=== PATIENT | male | born 1960 | race Caucasian/White ===

== ENCOUNTER 2018-04-09 13:45 | Emergency (ER) | payer BC ==
[2018-04-09 15:02] LABS: Absolute Lymphocytes (CBC) 1.8 K/uL (0.7-4.9); Absolute Monocytes 1.2 K/uL (0.1-1.3); Absolute Neutrophil 7.5 K/uL (1.8-8.0); Basophils % 0.9 % (0-1.3); Eosinophils % 1.7 % (0-4.4); Hematocrit 40.1 % (39.6-49.0); Lymphocytes % 16.7 % (15.3-44.8); MCH 32.6 pg (27.0-35.0); MPV 8.9 fL (7.6-11.3); Monocytes % 11.4 % (3.3-12.3); RBC Red Blood Cell Count 4.27 M/uL (4.33-5.43)
[2018-04-09 15:12] LABS: Potassium 3.5 mmol/L (3.5-5.1)
--- NOTE | 2018-04-09 15:18 | RAD REPORT ---
EXAM DESCRIPTION: USExtremity Venous Uni Ltd04/09/2018 3:04 pm CLINICAL HISTORY: Right leg pain and swelling. COMPARISON: None. FINDINGS: Right common femoral, superficial femoral, popliteal and right posterior tibial veins are compressible and demonstrate augmentation. Doppler demonstrates good flow. IMPRESSION: No evidence of deep venous thrombosis involving the right lower extremity.
--- NOTE | 2018-04-09 15:33 | EDPHYS ---
Physician Documentation [facility] Name: Dong rPince Age: 58 yrs Sex: Male : 1960 Arrival Date: 04/09/2018 Time: 13:50 Bed 20 Private MD: None, None ED Physician Yemi Coronado HPI: 04/09 14:57 This 58 yrs old Male presents to ER via Ambulatory with complaints of kb Infected Leg. 14:57 The patient presents with cellulitis of the lateral aspect of right calf, medial aspect kb of right calf and right zhu. Description: erythematous, swollen, warm. Onset: The symptoms/episode began/occurred 3 day(s) ago. Possible cause(s): unknown. Associated signs and symptoms: Pertinent positives: erythema, swelling, Pertinent negatives: discharge, drainage, foreign body sensation, fever, headache, nausea, shortness of breath, vomiting. Modifying factors: the symptoms are alleviated by nothing, the symptoms are aggravated by nothing. Severity of symptoms: At their worst the symptoms were moderate, in the emergency department the symptoms are unchanged. The patient has not experienced similar symptoms in the past. The patient has not recently seen a physician. Pt reports he started having redness and swelling to right lower leg 3 days ago. States the redness has gotten better, but the swelling is the same. Pt had surgery on bottom of right foot in January and has been going to surgeon for regular follow ups. States that had been healing well. Has an appt with surgeon again on Friday. Dime-sized open wound on bottom of right foot with some drainage s/p surgical procedure. No redness, swelling or warmth around wound. Denies fever. . Historical: - Allergies: 13:57 Sulfa (Sulfonamide Antibiotics); aj - Home Meds: 13:57 metformin 500 mg Oral tr24 1 tab once daily [Active]; Hyzaar 100-25 mg Oral tab 1 tab aj once daily [Active]; nifedipine 60 mg Oral tr24 1 tab once daily [Active]; Lipitor 20 mg Oral tab 1 tab once daily [Active]; Zyrtec 10 mg Oral chew 1 tab once daily [Active]; aspirin 81 mg Oral TbEC 1 tab once daily [Active]; diclofenac sodium 75 mg oral TbEC 1 tab 2 times per day [Active]; - PMHx: 13:57 Diabetes - NIDDM; Hypertension; Hyperlipidemia; aj - PSHx: 13:57 Left Hip replacement; aj - Immunization history:: Adult Immunizations up to date. - Social history:: Smoking status: Patient/guardian denies using tobacco. - Ebola Screening: : Patient negative for fever greater than or equal to 101.5 degrees Fahrenheit, and additional compatible Ebola Virus Disease symptoms Patient denies exposure to infectious person Patient denies travel to an Ebola-affected area in the 21 days before illness onset No symptoms or risks identified at this time. ROS: 14:55 Constitutional: Negative for fever, chills, and weight loss, Cardiovascular: Negative kb for chest pain, palpitations, and edema, Respiratory: Negative for shortness of breath, cough, wheezing, and pleuritic chest pain, Abdomen/GI: Negative for abdominal pain, nausea, vomiting, diarrhea, and constipation, Neuro: Negative for headache, weakness, numbness, tingling, and seizure. 14:55 MS/extremity: Positive for erythema, swelling, warmth, of the right zhu. Exam: 14:55 Constitutional: This is a well developed, well nourished patient who is awake, alert, kb and in no acute distress. Head/Face: Normocephalic, atraumatic. Chest/axilla: Normal chest wall appearance and motion. Nontender with no deformity. No lesions are appreciated. Cardiovascular: Regular rate and rhythm with a normal S1 and S2. No gallops, murmurs, or rubs. Normal PMI, no JVD. No pulse deficits. Respiratory: Lungs have equal breath sounds bilaterally, clear to auscultation and percussion. No rales, rhonchi or wheezes noted. No increased work of breathing, no retractions or nasal flaring. Abdomen/GI: Soft, non-tender, with normal bowel sounds. No distension or tympany. No guarding or rebound. No evidence of tenderness throughout. MS/ Extremity: Pulses equal, no cyanosis. Neurovascular intact. Full, normal range of motion. Neuro: Awake and alert, GCS 15, oriented to person, place, time, and situation. Cranial nerves II-XII grossly intact. Motor strength 5/5 in all extremities. Sensory grossly intact. Cerebellar exam normal. Normal gait. 14:55 Skin: cellulitis, that is moderate, on the lateral aspect of right calf, medial aspect of right calf and right zhu. Vital Signs: 13:57 BP 132 / 82; Pulse 87; Resp 18; Temp 97.7; Pulse Ox 96% on R/A; Weight 137.89 kg; aj Height 6 ft. 5 in. (195.58 cm); 16:01 BP 134 / 85; Pulse 88; Resp 18; Pulse Ox 100% on R/A; mg2 13:57 Body Mass Index 36.05 (137.89 kg, 195.58 cm) aj MDM: 13:58 Patient medically screened. kb 14:56 Data reviewed: vital signs, nurses notes. Data interpreted: Pulse oximetry: on room air kb is 96 %. Interpretation: normal. 15:31 Counseling: I had a detailed discussion with the patient and/or guardian regarding: the kb historical points, exam findings, and any diagnostic results supporting the discharge/admit diagnosis, lab results, radiology results, the need for outpatient follow up, a family practitioner, to return to the emergency department if symptoms worsen or persist or if there are any questions or concerns that arise at home. 04/09 14:07 Order name: CBC with Diff; Complete Time: 15:16 kb 04/09 14:07 Order name: Basic Metabolic Panel; Complete Time: 15:13 kb 04/09 14:07 Order name: US Extremity Venous Unilateral Ltd; Complete Time: 15:19 kb 04/09 14:07 Order name: Blood Culture Adult (2) kb 04/09 14:07 Order name: Wound Culture kb 04/09 14:52 Order name: Urine Dipstick--Ancillary (enter results); Complete Time: 15:58 eb 04/09 14:07 Order name: IV Start; Complete Time: 14:19 kb 04/09 14:36 Order name: Labs - recollect needed; Complete Time: 14:53 eb Administered Medications: 15:45 Drug: Clindamycin 600 mg Route: IVPB; Infused Over: 30 mins; Site: right forearm; mg2 16:22 Follow up: Response: No adverse reaction; IV Status: Completed infusion mg2 Disposition: 18:35 Co-signature as Attending Physician, Yemi Coronado MD. rn Disposition: 04/09/18 15:32 Discharged to Home. Impression: Cellulitis of right lower limb. - Condition is Stable. - Discharge Instructions: Cellulitis, Adult, [id number]. - Prescriptions for Clindamycin HCl 300 mg Oral Capsule - take 1 capsule by ORAL route every 6 hours for 10 days; 40 capsule. - Medication Reconciliation Form, Thank You Letter, Antibiotic Education, Prescription Opioid Use form. - Follow up: Emergency Department; When: As needed; Reason: Worsening of condition. Follow up: Private Physician; When: 2 - 3 days; Reason: Recheck today's complaints, Continuance of care, Re-evaluation by your physician. Signatures: Dispatcher [employer] EDJerrica Barry, SATYA-C GARNETT MECHANIC-Nubia Iqbal, RN RN Yemi Sosa MD MD rn Botello, Elizabeth eb Gardose, Michele, RN RN mg2 Corrections: (The following items were deleted from the chart) 15:00 14:57 Pt reports he started having redness and swelling to right lower leg 3 days ago. kb States the redness has gotten better, but the swelling is the same. Pt had surgery on bottom of right foot in January and has been going to surgeon for regular follow ups. States that had been healing well. Has an appt with surgeon again on Friday. Dime-sized open wound on bottom of right foot with some drainage s/p surgical procedure. No redness, swelling or warmth around wound. . kb 16:22 15:32 04/09/2018 15:32 Discharged to Home. Impression: Cellulitis of right lower limb. mg2 Condition is Stable. Forms are Medication Reconciliation Form, Thank You Letter, Antibiotic Education, Prescription Opioid Use. Follow up: Emergency Department; When: As needed; Reason: Worsening of condition. Follow up: Private Physician; When: 2 - 3 days; Reason: Recheck today's complaints, Continuance of care, Re-evaluation by your physician. kb
--- NOTE | 2018-04-09 15:33 | ER ---
Nurse's Notes [facility] Name: Dong Prince Age: 58 yrs Sex: Male : 1960 Arrival Date: 04/09/2018 Time: 13:50 Bed 20 Private MD: None, None Diagnosis: Cellulitis of right lower limb Presentation: 04/09 13:54 Presenting complaint: Patient states: Right foot redness and swelling for 3 days. aj Patient presents in walking boot. Post SX in January. Transition of care: patient was not received from another setting of care. Onset of symptoms was April 06, 2018. Risk Assessment: Do you want to hurt yourself or someone else? Patient reports no desire to harm self or others. Initial Sepsis Screen: Does the patient meet any 2 criteria? No. Patient's initial sepsis screen is negative. Does the patient have a suspected source of infection? No. Patient's initial sepsis screen is negative. Care prior to arrival: None. 13:54 Method Of Arrival: Ambulatory 13:54 Acuity: NICK 3 aj Triage Assessment: 13:57 General: Appears in no apparent distress. comfortable, Behavior is calm, cooperative, aj appropriate for age. Pain: Complains of pain in right foot. Neuro: Level of Consciousness is awake, alert, obeys commands, Oriented to person, place, time, situation, Appropriate for age. Respiratory: Airway is patent Respiratory effort is even, unlabored, Respiratory pattern is regular, symmetrical. Derm: Skin is intact, is healthy with good turgor, Skin is pink, warm \T\ dry. normal, Reports redness and inflammation to right lower leg. Historical: - Allergies: 13:57 Sulfa (Sulfonamide Antibiotics); aj - Home Meds: 13:57 metformin 500 mg Oral tr24 1 tab once daily [Active]; Hyzaar 100-25 mg Oral tab 1 tab once daily [Active]; nifedipine 60 mg Oral tr24 1 tab once daily [Active]; Lipitor 20 mg Oral tab 1 tab once daily [Active]; Zyrtec 10 mg Oral chew 1 tab once daily [Active]; aspirin 81 mg Oral TbEC 1 tab once daily [Active]; diclofenac sodium 75 mg oral TbEC 1 tab 2 times per day [Active]; - PMHx: 13:57 Diabetes - NIDDM; Hypertension; Hyperlipidemia; aj - PSHx: 13:57 Left Hip replacement; aj - Immunization history:: Adult Immunizations up to date. - Social history:: Smoking status: Patient/guardian denies using tobacco. - Ebola Screening: : Patient negative for fever greater than or equal to 101.5 degrees Fahrenheit, and additional compatible Ebola Virus Disease symptoms Patient denies exposure to infectious person Patient denies travel to an Ebola-affected area in the 21 days before illness onset No symptoms or risks identified at this time. Screenin:00 Abuse screen: Denies threats or abuse. Denies injuries from another. Nutritional hj screening: No deficits noted. Tuberculosis screening: No symptoms or risk factors identified. Fall Risk Secondary diagnosis (15 points). Assessment: 14:03 General: Appears in no apparent distress. uncomfortable, Behavior is calm, cooperative, hj appropriate for age. Pain: Complains of pain in right leg. Neuro: Level of Consciousness is awake, alert, obeys commands, Oriented to person, place, time, situation, Appropriate for age. Cardiovascular: Capillary refill < 3 seconds Patient's skin is warm and dry. Respiratory: Airway is patent Respiratory effort is even, unlabored, Respiratory pattern is regular, symmetrical. GI: No signs and/or symptoms were reported involving the gastrointestinal system. : No signs and/or symptoms were reported regarding the genitourinary system. EENT: No signs and/or symptoms were reported regarding the EENT system. Derm: Reports wound on R foot, redness and painful;. Derm: Reports foot wrapped with gayle wrapped and using boot leg;. Musculoskeletal: No signs and/or symptoms reported regarding the musculoskeletal system. 16:00 Reassessment: Patient appears in no apparent distress at this time. Patient and/or mg2 family updated on plan of care and expected duration. Pain level reassessed. Patient is alert, oriented x 3, equal unlabored respirations, skin warm/dry/pink. patient for discharge after iv antibiotic infusion. Vital Signs: 13:57 BP 132 / 82; Pulse 87; Resp 18; Temp 97.7; Pulse Ox 96% on R/A; Weight 137.89 kg; aj Height 6 ft. 5 in. (195.58 cm); 16:01 BP 134 / 85; Pulse 88; Resp 18; Pulse Ox 100% on R/A; mg2 13:57 Body Mass Index 36.05 (137.89 kg, 195.58 cm) aj ED Course: 13:50 Patient arrived in ED. mr 13:50 None, None is Private Physician. mr 13:55 Triage completed. aj 13:57 Arm band placed on left wrist. Patient placed in an exam room. aj 13:58 Jerrica Cody FNP-C is PHCP. kb 13:58 Yemi Coronado MD is Attending Physician. kb 13:59 Bigg Biggs, SULY is Primary Nurse. hj 14:00 Patient has correct armband on for positive identification. Placed in gown. Bed in low hj position. Call light in reach. Side rails up X 1. Adult w/ patient. 14:15 Inserted saline lock: 20 gauge in right antecubital area, using aseptic technique. hj ,using aseptic technique. MANFRED Trimble tech Blood collected. 14:15 Initial lab(s) drawn, by ED staff, sent to lab. First set of blood cultures drawn by ED hj staff. 14:19 Wound Culture Sent. hj 14:30 First set of blood cultures drawn by me, Second set of blood cultures drawn by me. mh5 14:31 Warm blanket given. Pulse ox on. NIBP on. mh5 14:36 Blood Culture Adult (2) Sent. mh5 14:37 Basic Metabolic Panel Sent. mh5 14:37 CBC with Diff Sent. mh5 14:38 US Extremity Venous Unilateral Ltd In Process Unspecified. EDMS 16:21 No provider procedures requiring assistance completed. IV discontinued, intact, mg2 bleeding controlled, No redness/swelling at site. Pressure dressing applied. Administered Medications: 15:45 Drug: Clindamycin 600 mg Route: IVPB; Infused Over: 30 mins; Site: right forearm; mg2 16:22 Follow up: Response: No adverse reaction; IV Status: Completed infusion mg2 Outcome: 15:32 Discharge ordered by . kb 16:22 Discharged to home ambulatory. mg2 16:22 Condition: stable 16:22 Discharge instructions given to patient, Instructed on discharge instructions, follow up and referral plans. medication usage, Demonstrated understanding of instructions, follow-up care, medications, Prescriptions given X 1. 16:22 Patient left the ED. mg2 Addendum: 04/13/2018 09:01 Addendum: Culture Results: Positive wound culture. Bacteria is resistant to, has i w intermediate sensitivity, or is not tested against prescribed antibiotics. Report given to VICKY for further evaluation and then to precision mechanical instrument maker for follow up with patient. Phone call Attempt #1 pt did not answer, left voice mail with call back number. Signatures: Dispatcher [employer] EDJerrica Barry, GRINDER TENDER-C GRINDER TENDER-Nubia Iqbal, RN Neha Nascimento mr Maile Verduzco RN Bigg Sandoval RN Kellie Pichardo [facility] Enrique George RN RN mg2
[2018-04-09] MEDS ORDERED: CLINDAMYCIN 600MG/D5W 600 MG/50 ML BAG IV ONE (15:45)
[2018-04-09 15:57] LABS: Urine Blood NEGATIVE (NEG); Urine Glucose TRACE (NEG); Urine Protein NEGATIVE (NEG); Urine Specific Gravity 1.025 (1.005-1.030)
== END 2018-04-09 16:22 | disposition home or self-care (01) ==
LOC: ER 13:45
DX: L03.115 Cellulitis of right lower limb (principal); I10 Essential (primary) hypertension; E11.9 Type 2 diabetes mellitus without complications; E78.5 Hyperlipidemia, unspecified; Z79.82 Long term (current) use of aspirin; Z88.2 Allergy status to sulfonamides
CPT/HCPCS: 36415; 80048; 81003; 85025; 87040; 87070; 87077; 87186; 87205; 93971; 96365; 99284